=== PATIENT | female | born 1980 | race Hispanic/Latino ===

== ENCOUNTER 2017-08-29 15:45 | Emergency (ER) | payer OTHER ==
[~2017-08-29] VITALS: Ht 162.6 cm; Wt 75.7 kg
[~2017-08-29 15:45] MED LIST: EFFEXOR XR150 MG PO; NEURONTIN100 MG PO
--- OUTSIDE RECORDS SUMMARY | 2017-08-29 15:48 | XMS REPORT | Summary of Care ---
Author Author Citlali Sampson R.N. 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 Name Role Phone ASHLIE Conrad, LESLIE Medeiros Unavailable NYA Guallpa.ZENAIDA Caba Unavailable Unavailable ASLHIE LEWIS [place], LESLIE REED Unavailable Unavailable Unavailable Unavailable Functional Status Name Dates Details Functional status health issues are not documented Status: Name Dates Details Cognitive status health issues are not documented Status: Problems Name Dates Details Joint pain of lower extremity (719.48, M25.50) Status: Active Shoulder pain (719.41, M25.519) Status: Active Rotator cuff tendonitis (726.10, M75.80) Status: Active Human parvovirus infection (079.83, B34.3) Status: Active Eben-Rodriguez viral infection (075, B27.90) Status: Active Lymphadenopathy (785.6, R59.1) Status: Active Pharyngitis (462, J02.9) Status: Active Dense breasts (793.82, R92.2) Status: Active Abnormal mammogram (793.80, R92.8) Status: Active Persistent nodularity of breast (793.89, N63.0) Status: Active Soft tissue mass (729.90, M79.9) Status: Active Viral pharyngitis (462, J02.9) Status: Active Vaginal burning (625.8, N94.9) Status: Active Masses of both breasts (611.72, N63.10) Status: Active Snoring (786.09, R06.83) Status: Active Daytime hypersomnolence (780.54, G47.19) Status: Active Encounter for routine gynecological examination with Papanicolaou smear of cervix (V72.31, Z01.419) Status: Active Cervical cancer screening (V76.2, Z12.4) Status: Active Cervical dysplasia (622.10, N87.9) Status: Active Well woman exam with routine gynecological exam (V72.31, Z01.419) Status: Active Low grade squamous intraepithelial lesion (LGSIL) on cervical Pap smear (795.03 , R87.612) Status: Active Cervical high risk HPV (human papillomavirus) test positive (795.05, R87.810) Status: Active PPD screening test (V74.1, Z11.1) Status: Active Heat intolerance (780.99, R68.89) Status: Active BMI 27.0-27.9,adult (V85.23, Z68.27) Status: Active Bacterial vaginosis (616.10, N76.0) Status: Active Excessive sweating (780.8, R61) Status: Active Dysthymic disorder (300.4, F34.1) Status: Active BMI 28.0-28.9,adult (V85.24, Z68.28) Status: Active Transient visual disturbance, bilateral (368.9, H53.9) Status: Active Bilateral tinnitus (388.30, H93.13) Status: Active 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, 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) Status: Active Vitamin D deficiency (268.9, E55.9) Status: Active Anterior neck pain (723.1, M54.2) Status: Active GERD (gastroesophageal reflux disease) (530.81, K21.9) Status: Active Fatigue (780.79, R53.83) Status: Active Choking sensation (784.99, R09.89) Status: Active Breast lump (611.72, N63.0) Status: Active Breast cancer screening (V76.10, Z12.31) Status: Active Ovarian cyst (620.2, N83.209) Status: Active DJD (degenerative joint disease) 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, 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) Status: Active Routine screening for STI (sexually transmitted infection) (V74.5, Z11.3) Status: Active Influenza vaccine needed (V04.81, Z23) Status: Active Night sweats (780.8, R61) Status: Active Breast mass, right (611.72, N63.10) Status: Active Infection, upper respiratory (465.9, J06.9) Status: Active Seasonal allergic rhinitis (477.9, J30.2) Status: Active Mood disorder (296.90, F39) Status: Active Chronic constipation (564.00, K59.09) Status: Active Paresthesia of upper and lower extremities of both sides (782.0, R20.2) Status: Active Acute upper respiratory infection (465.9, J06.9) Status: Active Allergic rhinitis (477.9, J30.9) Status: Active Medications Name Dates Details Mirena IUD Active Gabapentin 300 MG Oral Capsule Take 1 capsule by mouth twice a day * Quantity: 180 Refills: 1 LESLIE DAILEY M.D. * Start : 15-Jul-2016 Active Linzess CAPS TAKE 1 TABLET ONCE DAILY, Rx'd by Dr. Lalit Kim * Refills: 0 Active FLUoxetine HCl - 40 MG Oral Capsule TAKE 1 CAPSULE BY MOUTH EVERY DAY * Quantity: 30 Refills: 0 CHRIS DAILEY M.D.NDA * Start : 09-Aug-2017 Active Vitamin D3 2000 UNIT Oral Capsule TAKE 1 CAPSULE ONCE DAILY * Refills: 0 Active Ipratropium Gibson 0.03 % Nasal Solution USE 2 SPRAYS IN EACH NOSTRIL 3 TIMES DAILY NEEDED FOR NASAL CONGESTION * Quantity: 1 Refills: 0 NYA P.A., ZENAIDA * Start : 20-Jul-2017 Active 30 ML Bottle Benzonatate 100 MG Oral Capsule 1-2 tabs every 8 hours as needed for cough * Quantity: 40 Refills: 0 NYA P.A., ZENAIDA * Start : 20-Jul-2017 Active Allergies and Adverse Reactions Name Dates Details No Known Drug Allergies (Allergy) Status: Active Past Medical History Name Dates Details History of fatigue (V13.89, Z87.898) Status: Resolved History of Multiparity (V61.5, Z64.1) Status: Resolved History of Nephrolithiasis (V13.01) Status: Resolved History of Osteoarthritis (V13.4) Status: Resolved History of Peripheral neuropathy, hereditary/idiopathic (356.9, G60.9) Status: Resolved History of vaginitis (V13.29, Z87.42) Status: Resolved History of Vitamin B12 deficiency (266.2, E53.8) Status: Resolved Personal history of urinary tract infection (V13.02, Z87.440) Status: Resolved Procedures Procedure Dates Details History of Thyroid Surgery Thyroid Lobectomy Right Lobe Completed Immunization Name Dates Details Hepatitis B on: 29-Jun-2012 Influenza on: 19-Feb-2015 PPD Lot #: [id number] on: 29-Sep-2015 Fluzone Quadrivalent 0.5 ML Intramuscular Suspension Lot #: [id number] on: 26-Jan-2016 Fluzone Quadrivalent 0.5 ML Intramuscular Suspension Lot #: [id number] on: 13-Mar-2017 Family History Name Dates Details Family history of diabetes mellitus (V18.0, Z83.3) Status: Active Name Dates Details No pertinent family history Status: Active Name Dates Details Family history of diabetes mellitus (V18.0, Z83.3) Status: Active Social History Name Dates Details - Status: Name Dates Details Never smoker Vital Signs Date Test Result Details 20-Jul-20178:49 BP Systolic 114 mm[Hg] Status: Comments: Location: LUE; Position: Sitting BP Diastolic 74 mm[Hg] Status: Comments: Location: LUE; Position: Sitting Height 64 in Status: Weight 169.375 lb Status: Body Mass Index Calculated 29.07 kg/m2 Status: Body Surface Area Calculated 1.82 m2 Status: Temperature 97.9 f Status: Comments: Method: Temporal Respiration Rate 16 /min Status: Heart Rate 90 /min Status: Results Date Description Value Details 20-Jul-20179:29 [O] Influenza A and B, Rapid Method (In Office) INFLUENZA A & B Rapid neg (Normal) Plan of Care Name Dates Details Planned Observations Planned Goals not documented Planned Encounters Appointment; ZENAIDA RUCKER M.D. On: 07-May-2018 9:20 Instructions Name Dates Details Instructions not documented Encounters Appointment; CIERA CROWE M.D. Encounter Diagnosis: Problem not documented On: 20-Aug-2015 13:00 Appointment; LESLIE DAILEY M.D. Encounter Diagnosis: Problem not documented On: 29-Sep-2015 14:45 Appointment; LESLIE DAILEY M.D. Encounter Diagnosis: Problem not documented On: 03-Nov-2015 15:30 Appointment; ZENAIDA RUCKER M.D. Encounter Diagnosis: Problem not documented On: 09-Nov-2015 9:20 Appointment; ZENAIDA RUCKER M.D. Encounter Diagnosis: Problem not documented On: 16-Nov-2015 11:20 Appointment; LESLIE DAILEY M.D. Encounter Diagnosis: Problem not documented On: 26-Jan-2016 14:45 Appointment; LESLIE DAILEY M.D. Encounter Diagnosis: Problem not documented On: 11-Mar-2016 8:30 Appointment; LESLIE DAILEY M.D. Encounter Diagnosis: Problem not documented On: 16-Mar-2016 8:00 Appointment; LESLIE DAILEY M.D. Encounter Diagnosis: Problem not documented On: 11-Apr-2016 13:30 Appointment; ZENAIDA RUCKER M.D. Encounter Diagnosis: Problem not documented On: 09-May-2016 9:40 Appointment; LESLIE DAILEY M.D. Encounter Diagnosis: Problem not documented On: 25-Jul-2016 8:30 Appointment; LESLIE DAILEY M.D. Encounter Diagnosis: Problem not documented On: 25-Jul-2016 9:45 Appointment; LESLIE DAILEY M.D. Encounter Diagnosis: Problem not documented On: 05-Sep-2016 8:30 Appointment; ZENAIDA RUCKER M.D. Encounter Diagnosis: Problem not documented On: 07-Nov-2016 13:20 Appointment; LESLIE DAILEY M.D. Encounter Diagnosis: Problem not documented On: 13-Mar-2017 8:30 Appointment; LESLIE DAILEY M.D. Encounter Diagnosis: Problem not documented On: 17-Apr-2017 13:45 Appointment; ZENAIDA RUCKER M.D. Encounter Diagnosis: Problem not documented On: 08-May-2017 9:40 Appointment; PIPPA FAY M.D. Encounter Diagnosis: Problem not documented On: 20-May-2017 12:45 Appointment; BRADY CASPER M.D. Encounter Diagnosis: Problem not documented On: 07-Jun-2017 15:00 Appointment; ZENAIDA FAY P.A. Encounter Diagnosis: Problem not documented On: 20-Jul-2017 8:45
[2017-08-29] MEDS ORDERED: IBUPROFEN400 MG PO (17:17)
[2017-08-29] MEDS: KETOROLAC TROMETHAMINE 60 MG/2 ML VIAL IM ONE (17:24)
[2017-08-29 17:27] VITALS: BP 115/72
== END 2017-08-29 17:40 | disposition home or self-care (01) ==
LOC: FSED 15:45
DX: S16.1XXA Strain of muscle, fascia and tendon at neck level, initial encounter (principal); X58.XXXA Exposure to other specified factors, initial encounter; F33.0 Major depressive disorder, recurrent, mild; G25.81 Restless legs syndrome
CPT/HCPCS: 99282; J1885